=== PATIENT | male | born 1970 | race Caucasian/White ===

== ENCOUNTER 2018-07-03 06:41 | Emergency (ER) | payer OTHER, BC ==
[2018-07-03 07:30] VITALS: BP 126/97; PULSE 91; TEMP 98.5; BMI 33.4
[2018-07-03] MEDS ORDERED: KETOROLAC TROMETHAMINE 60 MG/2 ML VIAL IM ONE (07:33)
[2018-07-03] MEDS ORDERED: CYCLOBENZAPRINE HCL 10 MG TABLET (FP) PO ONE (07:34)
--- NOTE | 2018-07-03 07:39 | PDOC ---
History of Present Illness - General Chief Complaint: Back Pain Stated Complaint: BACK PAIN Time Seen by Provider: 07/03/18 07:31 History Source: Patient - History of Present Illness Occurred: reports: other Severity: reports: severe Pain Location: reports: back Past History - Past Medical History Allergies/Adverse Reactions: Allergies Allergy/AdvReac Type Severity Reaction Status Date / Time No Known Allergies Allergy Verified 07/03/18 07:23 Home Medications: Ambulatory Orders Cyclobenzaprine HCl [Flexeril -] 10 mg PO TID #9 tablet 07/03/18 Ibuprofen [Motrin -] 800 mg PO Q6H #30 tablet 07/03/18 Tramadol HCl 50 mg PO Q6H #12 tablet MDD 200 mg 07/03/18 COPD: No CHF: No DVT: No - Immunization History Immunization Up to Date: Yes - Suicide/Smoking/Psychosocial Hx Smoking History: Current every day smoker Number of Cigarettes Smoked Daily: 10 Information on smoking cessation initiated: No Hx Alcohol Use: No Drug/Substance Use Hx: No Review of Systems - Review of Systems Constitutional: No: Chills, Fever ABD/GI: No: Diarrhea, Nausea, Vomiting, Abdominal cramping : No: Burning, Dysuria, Discharge, Flank Pain, Hematuria Musculoskeletal: Yes: Back Pain Neurological: No: Numbness, Tingling, Weakness *Physical Exam - Vital Signs Last Vital Signs Temp Pulse Resp BP Pulse Ox 98.5 F 91 H 17 126/97 98 07/03/18 07:23 07/03/18 07:23 07/03/18 07:23 07/03/18 07:23 07/03/18 07:23 - Physical Exam General Appearance: Yes: Appropriately Dressed, Moderate Distress HEENT: positive: Normal Voice Neck: positive: Supple Respiratory/Chest: negative: Respiratory Distress Gastrointestinal/Abdominal: positive: Soft. negative: Tender, Pulsatile Mass Musculoskeletal: positive: Vertebral Tenderness (to lower back diffusely). negative: CVA Tenderness Integumentary: positive: Dry, Warm Neurologic: positive: Fully Oriented, Alert, Normal Mood/Affect, Motor Strength 5/5 Medical Decision Making - Medical Decision Making 07/03/18 07:31 47 yo M, here w/ back pain. 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 Took 2 Aleve this a.m. which did seem to help per pt. No numbness, tingling, lower extremity weakness, saddle anesthesia or bowel or bladder incontinence. No history of back pain in the past. Denies n/v/f/c or dysuria, hematuria or abd pain. No h/o renal stone See exam M/l Back strain No red flags at this time Exam remarkable for reproducible pain to lower back and pain to site w/ movement in ER -pain control/reassess 07/03/18 08:18 Patient reports improvement with meds and requesting discharge at this time. Will DC with pain control and PMD follow-up as needed *DC/Admit/Observation/Transfer Diagnosis at time of Disposition: Lower back pain Qualifiers: Chronicity: acute Back pain laterality: bilateral Sciatica presence: without sciatica Qualified Code(s): M54.5 - Low back pain - Discharge Dispostion Disposition: HOME Condition at time of disposition: Improved - Prescriptions Prescriptions: Cyclobenzaprine HCl [Flexeril -] 10 mg PO TID #9 tablet Ibuprofen [Motrin -] 800 mg PO Q6H #30 tablet Tramadol HCl 50 mg PO Q6H #12 tablet MDD 200 mg - Referrals - Patient Instructions Printed Discharge Instructions: Low Back Pain Additional Instructions: Take medications as prescribed. If pain persists, please follow-up with your primary care physician - Post Discharge Activity Forms/Work/School Notes: Back to Work
[2018-07-03] MEDS ORDERED: CYCLOBENZAPRINE HCL 10 MG TABLET (FP) ONE (07:51)
[2018-07-03] MEDS ORDERED: KETOROLAC TROMETHAMINE 60 MG/2 ML VIAL ONE (07:51)
--- NOTE | 2018-07-03 08:14 | PDOC ---
*Physical Exam - Vital Signs Last Vital Signs Temp Pulse Resp BP Pulse Ox 98.5 F 91 H 17 126/97 98 07/03/18 07:23 07/03/18 07:23 07/03/18 07:23 07/03/18 07:23 07/03/18 07:23 - Physical Exam Comments: 07/03/18 08:13 The patient was examined by [PA ] under my direct supervision. I personally evaluated the patient. I concur with the above findings and the plan of care. ED Treatment Course - Medications Given in the ED: ED Medications Discontinued Medications Generic Name Dose Route Start Last Admin Trade Name Mkq PRN Reason Stop Dose Admin Cyclobenzaprine HCl 10 mg 07/03/18 07:34 07/03/18 08:02 Flexeril - PO 07/03/18 07:35 10 mg ONCE ONE Administration Ketorolac Tromethamine 60 mg 07/03/18 07:33 07/03/18 08:02 Toradol Injection - IM 07/03/18 07:34 60 mg ONCE ONE Administration *DC/Admit/Observation/Transfer Diagnosis at time of Disposition: Lower back pain Qualifiers: Chronicity: acute Back pain laterality: bilateral Sciatica presence: without sciatica Qualified Code(s): M54.5 - Low back pain - Discharge Dispostion Disposition: HOME Condition at time of disposition: Improved - Prescriptions Prescriptions: Cyclobenzaprine HCl [Flexeril -] 10 mg PO TID #9 tablet Ibuprofen [Motrin -] 800 mg PO Q6H #30 tablet Tramadol HCl 50 mg PO Q6H #12 tablet MDD 200 mg - Referrals - Patient Instructions Printed Discharge Instructions: Low Back Pain Additional Instructions: Take medications as prescribed. If pain persists, please follow-up with your primary care physician - Post Discharge Activity Forms/Work/School Notes: Back to Work
== END 2018-07-03 08:32 | disposition home or self-care (01) ==
LOC: JER 06:41
PROC: 3E0233Z Introduction of Anti-inflammatory into Muscle, Percutaneous Approach (ICD-10-PCS; principal; 2018-07-03)
DX: M54.5 Low back pain (principal); F17.210 Nicotine dependence, cigarettes, uncomplicated
CPT/HCPCS: 99282-25